=== PATIENT | female | born 2005 | race Caucasian/White ===

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

== ENCOUNTER 2025-05-10 11:12 | Emergency (ER) | payer OTHER ==
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
[2025-05-10] MEDS: ACETAMINOPHEN TAB 325 MG TAB PO STA (12:39)
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
[2025-05-10 13:23] VITALS: BP 110/70; PULSE 66; RESP 18; TEMP 98
== END 2025-05-10 15:17 | disposition home or self-care (01) ==
LOC: EC 11:12
DX: S56.912A Strain of unspecified muscles, fascia and tendons at forearm level, left arm, initial encounter (principal); F17.290 Nicotine dependence, other tobacco product, uncomplicated; V43.52XA Car driver injured in collision with other type car in traffic accident, initial encounter; Y92.410 Unspecified street and highway as the place of occurrence of the external cause
CPT/HCPCS: 99284

== ENCOUNTER 2025-05-10 19:29 | Emergency (ER) | payer BC, OTHER ==
[2025-05-10 20:07] VITALS: RESP 18
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
[2025-05-10] MEDS: METOCLOPRAMIDE 10 MG TAB PO STA (20:47)
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
[2025-05-10 22:26] VITALS: BP 128/86; PULSE 85; TEMP 98.7
== END 2025-05-10 22:26 | disposition home or self-care (01) ==
LOC: EC 19:29
DX: S06.0X0A Concussion without loss of consciousness, initial encounter (principal); F17.290 Nicotine dependence, other tobacco product, uncomplicated; V43.52XA Car driver injured in collision with other type car in traffic accident, initial encounter; Y92.410 Unspecified street and highway as the place of occurrence of the external cause
CPT/HCPCS: 70450; 81025; 99284